=== PATIENT | male | born 2000 | race Caucasian/White ===

== ENCOUNTER 2020-06-09 08:23 | Emergency (ER) | payer SELFPAY ==
[2020-06-09 08:30] VITALS: BP 156/69; PULSE 80; RESP 18; TEMP 37.3; O2SAT 99; BMI 26.9
--- NOTE | 2020-06-09 08:47 | ED_ITS ---
HPI - General Adult General Chief complaint: General Medical Stated complaint: neck swelling, sore throat Time Seen by Provider: 06/09/20 08:36 Source: patient Mode of arrival: ambulatory Limitations: no limitations History of Present Illness HPI narrative: 19-year-old male presenting to the ED with complaints of a sore throat and swelling into the the neck more on the right side per patient This all started today. Denies any fevers, trouble swallowing or breathing, cough, sputum production or any other symptoms complaints or concerns at this time. Denies recent travel or sick contacts. Denies any other symptom complaints or concerns at this time. Related Data Previous Rx's Medication Instructions Recorded acetaminophen-codeine 1 tab PO Q8H PRN #10 tab 06/09/20 clindamycin HCl 300 mg PO Q8H 10 Days #30 cap 06/09/20 Allergies Allergy/AdvReac Type Severity Reaction Status Date / Time aspirin [ASA] Allergy Unknown HIVES/ITCHY/DIFFICULTY Unverified 03/28/20 16:53 BREATHING Penicillins [PCN] Allergy Unknown HIVES/ITCHY/DIFFICULTY Unverified 03/28/20 16:53 BREATHING Review of Systems Review of Systems: Constitutional : No Fever, No Chills ENT/Mouth : No Hearing loss, No Ear Pain, No Nasal Congestion, No Sinus Pain, No Hoarseness, + sore throat, No Rhinorrhea, No Swallowing Difficulty Eyes: No Eye Pain, No Swelling, No Redness, No Foreign Body, No Discharge, No Vision Changes Cardiovascular : No Chest Pain, No SOB Respiratory : No Cough, No Sputum, No Wheezing Musculoskeletal : No joint pain, No Myalgias, No Joint Swelling Skin : No Skin Lesions, No rash Heme/Lymph: + Lymphadenopathy Yes all other systems are reviewed and are negative [facility] Past Medical History Attestation statement: The following information was validated with the patient. Medical History No known health problems Social History Social History Alcohol intake: never Smoked in Last 30 Days: No Use of substances other than those prescribed or required for medical reasons: No Advance Directives: No Advance Directives Information Provided: No Physical Exam Vital Signs: Vital Signs: Last Vital Signs Temp 99.1 F 06/09/20 08:30 Pulse 80 06/09/20 08:30 Resp 18 06/09/20 08:30 BP 156/69 H 06/09/20 08:30 Pulse Ox 99 06/09/20 08:30 Body Mass Index 26.9 vital signs have been reviewed as normal and appeared to be correct. Blood pressure normal. Heart rate normal. Respiration rate normal. Temperature normal. Oxygen saturation normal. Appearance: Alert. Oriented X3. No acute distress. Head: Normal external exam. Normocephalic. Atraumatic. Eyes: PERRLA. EOMI. Conjunctiva and sclera normal. Eyelids normal. ENT: Bilateral tonsils erythematous with moderate exudate. Uvula midline not shifted at this time. not consistent with peritonsillar abscess at this time. Moist mucous membranes. No trismus noted. No drooling noted. No muffled voice noted. Neck: Normal inspection. Neck supple. FROM. +b/l lymphadenopathy. Thyroid Normal. No meningeal signs. No neck mass noted. CVS: Normal heart rate and rhythm. Heart sound normal. No murmurs noted. Pulses normal throughout. Respiratory: No respiratory distress. Painless inspiration. Breath sounds normal. No wheezes/rales/rhonchi noted. Chest nontender. No accessory muscle usage noted or decreased air movement noted. Back: Full range of motion noted. Skin: Skin warm and dry. Normal skin color. Normal skin turgor. No rashes/lesions/lacerations noted. Extremities: Extremities exhibit normal range of motion. Extremities nontender. Neuro: Oriented X 3. No motor deficit. No sensory deficit. Reflexes normal. Course Course Course Narrative: 19-year-old male presenting to the ED with complaints of sore throat with bilateral tonsil swelling. Uvula is midline. No drooling or trismus. Vital signs are normal. Patient breathing respirations even and unlabored. No difficulty swallowing. On exam bilateral tonsils erythematous with moderate exudate. Uvula is midline. No evidence of a peritonsillar abscess at this time. Patient has bilateral lymphadenopathy. Dr. Reilly came in to examine the patient as well and he also agrees this is not a peritonsillar abscess. Will obtain a rapid strep/ RSV /flu /COVID. Provide clindamycin as patient is allergic to penicillin and a dose of Decadron and instructions to return if any new or worsening symptoms. Patient understands agrees with this plan. Medical Decision Making Medical Records Medical records reviewed: Yes I reviewed the patient's medical records. Discharge Plan Discharge Clinical Impression: Pharyngitis Patient Disposition: Home, Self-Care Instructions: Pharyngitis (ED) Additional Instructions: Based on your symptoms and history we have sent a COVID-19. Although your RESULT IS PENDING at this time. RESULTS should return within 72 hours. At this time you will be contacted with either NEGATIVE OR POSITIVE results. -Please wait until we contact you for your results. At this time you will be okay for discharge. Please plan for self quarantine for up to 14 days. Do not expose yourself to others. You may not go to work. If testing does come back negative you may return to activities as long as you are no longer having any symptoms for at least 3 days. Please continue to follow cold instructions and wash your hands frequently. You may take Tylenol as directed on the bottle for pain or fever. Patient seen in the emergency department on 06/09/2020 and should be excused from work until negative test results AND until 72 hours without any symptoms AND at least 10 days have passed since symptoms first appeared or since last exposure to COVID-19 positive patient CDC Guidelines for home isolation: - Stay away from others - WEAR A MASK if you are sick AND STAY HOME - Cover your mouth and nose with a tissue when you cough or sneeze. Dispose of tissues in a lined trash can and wash your hands immediately with soap and water for at least 20 seconds. If soap and water are not available, clean hands with alcohol-based hand memorial marker designer that contains at least 60% alcohol. - Clean your hands often with soap and water for at least 20 seconds - Avoid touching your eyes, nose and mouth with unwashed hands - Do not share dishes, drinking glasses, cups, eating utensils, towels, or bedding with other people in your home. After using these items, wash them thoroughly with soap and water or put in the alterations expert. - Clean high-touch surfaces in your isolation area ( sick room and bathroom) every day; let a caregiver clean and disinfect high-touch surfaces in other area s of the home. Clean the area or item with soap and water or another detergent if it is dirty. Then, use a household disinfectant. - Limit contact with pets and animals: If you must care for a pet, wash your hands before and after interacting with them). Prescriptions: New clindamycin HCl 300 mg capsule 300 mg PO Q8H 10 Days Qty: 30 RF: 0 acetaminophen-codeine 300-30 mg tablet 1 tab PO Q8H PRN (Reason: pain) Qty: 10 RF: 0 Referrals: Physician,None [Primary Care Provider] - 2 days (your pcp) Stand Alone Forms: Work/School Release Print Language: Vietnamese
[2020-06-09] MEDS: dexAMETHasone 2 MG TABLET 10 MG PO (08:50)
[2020-06-09 12:49] LABS: Influenza A PCR NEGATIVE (Negative); Influenza B PCR NEGATIVE (Negative); Resp Syncy Virus RNA Qual PCR NEGATIVE (Negative); SARS COV2 PCR INHOUSE NEGATIVE (Negative)
== END 2020-06-09 09:13 | disposition home or self-care (01) ==
PROVIDERS: Physician Assistant Medical; Emergency Provider Internal Medicine
DX: J02.8 Acute pharyngitis due to other specified organisms (principal); Z20.828 Contact with and (suspected) exposure to other viral communicable diseases
CPT/HCPCS: 0241U; 87071; 87880; 99283; J8540

== ENCOUNTER 2020-08-18 08:36 | Emergency (ER) | payer OTHER, SELFPAY ==
[2020-08-18 09:26] VITALS: BP 134/63; PULSE 66; RESP 16; TEMP 36.7; O2SAT 97; BMI 25.7
--- NOTE | 2020-08-18 11:27 | ED.GENADULT ---
HPI - General Adult General Chief complaint: General Medical Stated complaint: COVID SYMPTONS Time Seen by Provider: 08/18/20 09:25 Source: patient Mode of arrival: ambulatory Limitations: no limitations History of Present Illness HPI narrative: Body aches/congestion for 1 day here requesting COVID test. Denies any other symptoms. No recent travel or sick contact Onset (ago): day(s) Severity: mild Associated symptoms: denies other symptoms Treatments prior to arrival: none Related Data Previous Rx's Medication Instructions Recorded acetaminophen-codeine 1 tab PO Q8H PRN #10 tab 06/09/20 clindamycin HCl 300 mg PO Q8H 10 Days #30 cap 06/09/20 Allergies Allergy/AdvReac Type Severity Reaction Status Date / Time aspirin [ASA] Allergy Unknown HIVES/ITCHY/DIFFICULTY Unverified 03/28/20 16:53 BREATHING Penicillins [PCN] Allergy Unknown HIVES/ITCHY/DIFFICULTY Unverified 03/28/20 16:53 BREATHING Review of Systems Review of Systems: Constitutional: No Weight loss, No Fever, No Chills, No Night Sweats, No Fatigue, No Malaise ENT/Mouth: No Hearing loss, No Ear Pain, positive Nasal Congestion, No Sinus Pain, No Hoarseness, No sore throat, positive Rhinorrhea, No Swallowing Difficulty Eyes: No Eye Pain, No Swelling, No Redness, No Foreign Body, No Discharge, No Vision Changes Cardiovascular: No Chest Pain, No SOB, No Dyspnea on Exertion, No Orthopnea, No Edema, No Palpitations Respiratory: No Cough, No Sputum, No Wheezing, No Smoke Exposure, No Dyspnea Gastrointestinal: No Nausea, No Vomiting, No Diarrhea, No Constipation, No abdominal Pain, No Hematochezia, No Melena Genitourinary: Negative Musculoskeletal: No joint pain, positive Myalgias, No Joint Swelling Skin: No Skin Lesions, No rash Neuro: No Weakness, No Numbness, No Paresthesias, No Loss of Consciousness, No Dizziness, No Headache Psych: No Social Issues Heme/Lymph: No Bruising, No Bleeding,No Lymphadenopathy Endocrine: No Polyuria, No Polydipsia, No Temperature Intolerance Yes all other systems are reviewed and are negative [facility]LY [facility] Past Medical History Medical History No known health problems Social History Social History Alcohol intake: never Advance Directives: No Advance Directives Information Provided: No Physical Exam Vital Signs: Vital Signs: Last Vital Signs Temp 98.0 F 08/18/20 09:26 Pulse 66 08/18/20 09:26 Resp 16 08/18/20 09:26 BP 134/63 08/18/20 09:26 Pulse Ox 97 08/18/20 09:26 Body Mass Index 25.7 Reviewed Const: General: cooperative and healthy appearing; No acute distress or intoxicated appearing Nutritional Appearance: average body habitus Orientation/consciousness: patient oriented x3 HENMT: Head: Yes normal to inspection Ears: hearing grossly normal bilaterally Eyes: General: appearance normal, both eyes and all related structures Visual Clark: normal visual clark by confrontation Neck: Neck: Yes normal visual inspection, No positive Brudzinski's sign, No positive Kernig's sign and No tender Thyroid: Thyroid normal Chest: Chest palpation & inspection: normal inspection of the chest Resp: Effort & Inspection: normal respiratory effort Auscultation: clear to auscultation bilaterally Cardio: Jugular venous distension: no JVD Rhythm: regular rhythm Heart sounds: S1 normal heart sound present and S2 normal heart sound present GI: Inspection: Yes normal to inspection Palpation (GI): Soft to palpation, not firm, nontender and no guarding Percussion: Yes normal to percussion Auscultation: normal bowel sounds : General: Yes no CVA tenderness Back/Spine/Pelvis: Back: no CVA tenderness Skin: General skin exam: no rashes or lesions noted Neuro: General: patient oriented x3 Extrem: General: Yes normal to inspection Discharge Plan Discharge Clinical Impression: Upper respiratory infection Patient Disposition: Home, Self-Care Additional Instructions: Your COVID results are pending this will result in the next 1 hour will call you with results Self-isolation Supportive care as discussed Social distancing Face mask covering Return if any concerns worsening symptoms Thank you Prescriptions: No Action clindamycin HCl 300 mg capsule 300 mg PO Q8H 10 Days Qty: 30 RF: 0 acetaminophen-codeine 300-30 mg tablet 1 tab PO Q8H PRN (Reason: pain) Qty: 10 RF: 0 Referrals: ED Physician,Generic [Physician] - 10 days Interventions: ED Discharge Assessment Last Done: 08/18/20 12:22
[2020-08-18 22:33] LABS: Influenza A PCR NEGATIVE (Negative); Influenza B PCR NEGATIVE (Negative); Resp Syncy Virus RNA Qual PCR NEGATIVE (Negative); SARS COV2 PCR INHOUSE NEGATIVE (Negative)
== END 2020-08-18 12:30 | disposition home or self-care (01) ==
PROVIDERS: Emergency Provider Emergency Medicine
DX: J06.9 Acute upper respiratory infection, unspecified (principal); Z20.822 Contact with and (suspected) exposure to COVID-19
CPT/HCPCS: 0241U; 36415; 99283